=== PATIENT | male | born 1955 | race African-American/Black ===

== ENCOUNTER 2025-03-29 00:41 | Emergency (ER) | payer OTHER, MEDICAID ==
[~2025-03-29] VITALS: Ht 172.7 cm; Wt 84.0 kg
[~2025-03-29 00:41] MED LIST: AMLO5TAB88 MT; ASPI-1497 MT; ATOR10TA69 MT; LISI-186 MT; METO-396 MT
[2025-03-29 00:43] VITALS: TEMP 36.6; O2SAT 97
[2025-03-29] MEDS: HYDROCODONE/ACETAMINOPHEN 5/325MG TABLET PO ONE (01:25)
[2025-03-29] MEDS ORDERED: HYDR-4001 MT (02:55)
[2025-03-29] MEDS: MORPHINE SULFATE 4 MG/ML INJ (FOR IV/IM USE) IM ONE (02:59)
[2025-03-29 03:07] VITALS: BP 147/83; PULSE 88; RESP 16; O2SAT 98
== END 2025-03-29 03:11 | disposition home or self-care (01) ==
LOC: ER 00:41
DX: G89.29 Other chronic pain (principal); M25.561 Pain in right knee; I10 Essential (primary) hypertension; Z79.899 Other long term (current) drug therapy
CPT/HCPCS: 99283; 96372; J2270